=== PATIENT | female | born 1995 | race Caucasian/White ===

== ENCOUNTER 2019-03-07 10:55 | Day surgery (SDC) | payer OTHER ==
[2019-03-06 10:42] VITALS: BMI 34.0
[2019-03-07 11:43] LABS: #Basophils 0.1 thou/uL (0.0-0.2); #Eosinphils 0.2 thou/uL (0.0-0.7); #Lymphocytes 4.8 thou/uL (1.20-3.40); #Monocytes 0.8 thou/uL (0.11-0.59); #Neutrophils 6.9 thou/uL (1.40-6.50); %Eosinophils 1.5 % (0.0-10.0); %Lymphocytes 37.5 % (21.0-51.0); %Monocytes 6.6 % (0.0-10.0); %Neutrophils 53.5 % (42.0-75.0); Hemoglobin 13.1 g/dL (12.0-16.0); Mean Corpuscular HGB CONC 32.3 g/dL (32.0-36.0); Mean Corpuscular Hemoglobin 26.4 pg (27.0-31.0); Mean Corpuscular Volume 81.7 fL (78.0-98.0); Mean Platelet Volume 7.7 fL (7.4-10.4); Platelet Count 345 thou/uL (130-400); RBC Distribution Width 12.1 % (11.5-14.5); Red Blood Cell (RBC) Count 4.95 mill/uL (4.20-5.40); White Blood Cell (WBC) Count 12.8 thou/uL (4.8-10.8)
[2019-03-07 11:50] LABS: Prothrombin Time 13.2 SEC (12.0-14.7)
[2019-03-07 11:51] LABS: PTT 25.7 SEC (22.9-36.1)
[2019-03-07 12:03] LABS: Anion Gap 13 mmol/L (10-20); BUN (Urea Nitrogen) 12 mg/dL (7.0-18.7); Calc. Creatinine Clearance 201 mL/min (70-130); Calcium 9.3 mg/dL (7.8-10.44); Carbon Dioxide 22 mmol/L (22-29); Chloride 107 mmol/L (98-107); Estimated GFR-MDRD Greater than 90; Glucose 122 mg/dL (70-105); Potassium 3.4 mmol/L (3.5-5.1); Sodium 139 mmol/L (136-145)
[2019-03-07] MEDS ORDERED: Lidocaine 1% (PF) 30 ML VIAL ONE (12:05)
[2019-03-07] MEDS ORDERED: Heparin 10,000 UNITS/1 ML VIAL ONE (13:38)
[2019-03-07] MEDS ORDERED: Midazolam HCl 2 mg/2 ml Vial ONE (13:38)
[2019-03-07] MEDS ORDERED: Propofol 500 MG/50 ML VIAL ONE (13:39)
[2019-03-07] MEDS ORDERED: Fentanyl 100 MCG/2 ML VIAL ONE ×3 (13:39→16:11)
[2019-03-07] MEDS ORDERED: Propofol 1,000 MG/100 ML VIAL IV ONE (13:52)
[2019-03-07] MEDS ORDERED: Isoproterenol 0.2 MG/1 ML AMP ONE ×2 (14:01→14:09)
[2019-03-07] MEDS ORDERED: Meperidine HCl/PF 25 MG/ML VIAL ONE (15:17)
--- NOTE | 2019-03-07 17:19 | OP ---
DATE OF PROCEDURE: 03/07/2019 PROCEDURES PERFORMED: Electrophysiology study and radiofrequency ablation. 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 She is here for EP study and ablation. DESCRIPTION OF PROCEDURE: The patient received deep sedation by Anesthesia specialist. After adequate level of sedation achieved, the left and right femoral vein areas were prepped, draped, and anesthetized using subcutaneous lidocaine and with ultrasound guidance both femoral veins were cannulated. On the left side, a 6 and an 8-Yakut sheaths were used to advance an octapolar and decapolar catheter to the right atrium, right ventricle, His bundle, and CS locations. Pacing, mapping, and recording were performed at each location including pacing of the left atrium via the CS catheter. The baseline measurements were obtained. Baseline rhythm was sinus rhythm with RR interval of 850 milliseconds, WA 173 milliseconds, QRS 90 milliseconds, QT 394, AH 121 milliseconds, and HV 50 milliseconds measured. The AV Wenckebach cycle length was 360 milliseconds without preexcitation are WBB was 350 milliseconds with concentric retrograde VA conduction. Atrial access to my testing yielded AV gissell ERP at 600/280 milliseconds. No definite dual AV node physiology was demonstrated at baseline. Following that, Isuprel was administered at 6 mcg and with burst atrial pacing, we were able to induce some 1:1 narrow complex tachycardia with cycle length of 230 to 270 milliseconds. Burst ventricular overdrive pacing yielded VA response and VA conduction time was very short less than 80 milliseconds, which was suggestive of AV gissell reentrant tachycardia. Right femoral venous access was obtained in a similar fashion to the left and then, an 8-Yakut short sheath was introduced through which a standard 4 mm ablation catheter was advanced to the right atrium. 3D map of the right atrium, His bundle, and CS and slow pathway locations were obtained. Slow pathway modification was performed with total of six ablation lesion. Total duration 2 minute and 6 seconds were delivered. Junctional beats were observed during the ablation. Following that, the repeat testing was obtained noting the AV Wenckebach cycle length at baseline to 450 milliseconds. Positive Isuprel, it was improved down to 260 milliseconds. Burst atrial pacing maneuvers, which previously induce the tachycardia, reliably did not reinduce the tachycardia on and off Isuprel administration. At the end of the case, cardiac silhouette did not change. Sheaths were pulled in the laborer tan house. The patient tolerated the procedure well. No complications noted. CONCLUSION: 1. Inducible AV gissell reentrant tachycardia. 2. Slow pathway modification eliminating inducibility and no evidence of slow pathway noted after ablation. 3. Normal AV gissell and His-Purkinje function. 4. No evidence of accessory pathway. PLAN: Eliminate the AV gissell blocking agents and continue monitoring for recurrent arrhythmias. Job ID: [id number]
== END 2019-03-07 19:05 | disposition home or self-care (01) ==
LOC: CCL 10:55
PROVIDERS: ATTEND Internal Medicine Cardiovascular Disease
PROC: 4A0234Z Measurement of Cardiac Electrical Activity, Percutaneous Approach (ICD-10-PCS; principal; 2019-03-07)
PROC: 4A023FZ Measurement of Cardiac Rhythm, Percutaneous Approach (ICD-10-PCS; principal; 2019-03-07)
PROC: 02K83ZZ Map Conduction Mechanism, Percutaneous Approach (ICD-10-PCS; principal; 2019-03-07)
PROC: 02583ZZ Destruction of Conduction Mechanism, Percutaneous Approach (ICD-10-PCS; principal; 2019-03-07)
DX: I47.1 Supraventricular tachycardia (principal); E11.9 Type 2 diabetes mellitus without complications; I10 Essential (primary) hypertension; G43.909 Migraine, unspecified, not intractable, without status migrainosus; M19.90 Unspecified osteoarthritis, unspecified site; Z79.3 Long term (current) use of hormonal contraceptives; Z91.041 Radiographic dye allergy status; Z98.1 Arthrodesis status
CPT/HCPCS: 76942; 80048; 85025; 85610; 85730; 93005; 93010; 93613; 93621; 93623; 93653; J1644; J2001; J2175; J2250; J2704; J3010